=== PATIENT | female | born 1980 | race Caucasian/White ===

== ENCOUNTER 2016-06-26 17:24 | Emergency (ER) | payer OTHER ==
[~2016-06-26] VITALS: Wt 69.0 kg
[~2016-06-26 17:24] MED LIST: CEPH500C PO; DOCU-144 PO; FER325 PO; OXYC-279 PO
--- NOTE | 2016-06-26 19:19 | ERD ---
ER Documentation Chief Complaint Date/Time DATE: 06/26/16 TIME: 19:18 Chief Complaint 8 WKS PREG SPOTTING. MILD ABD CRAMPING. NO DYSURIA. ONSET 2 DAYS HPI 36-year-old female who is with history of 3 miscarriages 8 weeks comes in with vaginal spotting and cramping occurred last night. She was seen at the clinic last today and they referred her to the ER. She has minimal abdominal cramping, no fever, chills or dizziness. Her last menstrual period she believes it was on April 26, 2016 ROS All systems reviewed and are negative except as per history of present illness. Medications Home Meds Active Scripts Nitrofurantoin Monohyd Macrocr* (Macrobid*) 100 Mg Capsr, 100 MG PO BID for 7 Days, CAP Prov:OZZY PEREZ PA-C 06/26/16 Ferrous Sulfate* (Ferrous Sulfate*) 325 Mg Tabec, 325 MG PO BID for 30 Days, TAB Prov:SOLIZ,SEBASTIEN V. TOPPER PRESS OPERATOR AUTOMATIC 03/10/16 Cephalexin* (Cephalexin*) 500 Mg Capsule, 500 MG PO QID, #28 CAP Prov:SOLIZ,SEBASTIEN V. TOPPER PRESS OPERATOR AUTOMATIC 03/10/16 Docusate Sodium* (Colace*) 100 Mg Capsule, 100 MG PO TID for 7 Days, #60 CAP Prov:SOLIZ,SEBASTIEN V. TOPPER PRESS OPERATOR AUTOMATIC 03/10/16 Oxycodone HCl/Acetaminophen (Percocet 5-325 mg Tablet) 1 Each Tablet, 1 EACH PO Q4, #25 TAB Prov:SOLIZ,SEBASTIEN V. TOPPER PRESS OPERATOR AUTOMATIC 03/10/16 Allergies Allergies: Coded Allergies: No Known Allergy (Unverified , 03/05/16) PMhx/Soc History of Surgery: No Anesthesia Reaction: No Hx Neurological Disorder: No Hx Respiratory Disorders: No Hx Cardiac Disorders: No Hx Psychiatric Problems: No Hx Miscellaneous Medical Probl: Yes (cholelithiasis) Hx Alcohol Use: No Hx Substance Use: No Hx Tobacco Use: No Smoking Status: Never smoker Physical Exam Vitals Vital Signs Date Time Temp Pulse Resp B/P Pulse Ox O2 Delivery O2 Flow Rate FiO2 06/26/16 17:36 98.6 75 21 120/64 99 Physical Exam General: Well-developed, well-nourished. The patient appears in no acute distress. HEENT: Head is normocephalic, atraumatic. No scleral icterus. . Neck: Supple. Nontender. Lungs: Clear to auscultation. Normal air movement. Heart: Regular rate and rhythm. S1 and S2 are normal. No murmurs, gallops, or rubs. Abdomen: Soft, nontender, nondistended. Bowel sounds are normoactive. Extremities: No clubbing or cyanosis. Normal pulses. Moving extremities x 4. No weakness. Neurologic: Alert and oriented 3. No focal deficits. Skin: Normal turgor. No rash or lesions. Result Diagram: 06/26/161953 Results 24 hrs Laboratory Tests Test 06/26/16 19:45 06/26/16 19:54 Urine Bacteria MANY Urine Bilirubin NEGATIVE Urine Clarity CLEAR Urine Color LT. YELLOW Urine Glucose NEGATIVE% Urine Hemoglobin 3+ Urine Ketones NEGATIVE Urine Leukocyte Esterase NEGATIVE Urine Microscopic RBC 2-5/HPF Urine Microscopic WBC 5-10/HPF Urine Nitrite NEGATIVE Urine Specific [place] 1.020 Urine Squamous Epithelial Cells FEW Urine Total Protein NEGATIVE Urine Urobilinogen 0.2 E.U./dL Urine pH 7.0 Basophils # 0.010^3/ul Basophils % 0.4% Beta HCG, Quantitative 34065.0mIU/ml Eosinophils # 0.210^3/ul Eosinophils % 2.5% Hematocrit 33.5% Hemoglobin 11.0g/dl Lymphocytes # 3.510^3/ul Lymphocytes % 41.1% Mean Corpuscular Hemoglobin 26.6pg Mean Corpuscular Hemoglobin Concent 32.8g/dl Mean Corpuscular Volume 81.1fl Mean Platelet Volume 11.0fl Monocytes # 0.710^3/ul Monocytes % 8.1% Neutrophils # 0.010^3/ul Neutrophils % 47.7% Nucleated Red Blood Cells # 0.010^3/ul Nucleated Red Blood Cells % 0.0/100WBC Platelet Count 59802^3/UL Red Blood Count 4.1310^6/ul Red Cell Distribution Width 14.8% White Blood Count 8.410^3/ul PROCEDURE: OBSTETRICAL ULTRASOUND WITH ENDOVAGINAL IMAGES CLINICAL INDICATION: Vaginal Bleed () TECHNIQUE: Multiple sonographic images of the pelvis were obtained utilizing a transabdominal and endovaginal technique. The images were reviewed on a PACS workstation. COMPARISON: Obstetrical ultrasound from 03/08/2016 LMP: 04/26/2016 FINDINGS: There is a single live intrauterine with heart rate of 117 beats per minute, mean sac diameter of 1.04 cm, yolk sac, and crown-rump length of 0.37 cm which is consistent with a gestational age of 5 weeks, 6 days . The estimated date of delivery by ultrasound is 02/20/2017 . The estimated gestational age by LMP is 8 weeks, 5 days . The estimated date of delivery by LMP is 01/31/2017 . There is a hypoechoic lesion adjacent to the gestational sac measuring 1.7 x 0.5 cm seen with a subchorionic hemorrhage. The right ovary is not visualized. The left ovary measures 3.0 x 1.3 x 2.6 cm. There is normal vascular flow in the left ovary There is a 1.8 cm complex cystic lesion with uniform low level internal echoes and prominent peripheral vascular flow in the left ovary which is likely a hemorrhagic or corpus luteal cyst. No significant pelvic free fluid is identified. IMPRESSION: Single live intrauterine consistent with a gestational age of 5 weeks , 6 days . The estimated date of delivery is 02/20/2017 . Dating by ultrasound is within 3 weeks of dating by LMP. Small subchorionic hemorrhage. 1.8 cm complex cystic lesion in the left ovary is likely a hemorrhagic or corpus luteal cyst . Nonvisualization of the right ovary. RPTAT: EE Physician Geno Date Time Electronically viewed and signed by Physician Geno on 06/26/2016 20:10 Procedures/MDM 36 year old female comes in with vaginal bleeding, single live IUP seen on ultrasound. No evidence of ectopic , patient is hemodynamically stable , she is follow-up with her OB in the next 3 days. Departure Diagnosis: Primary Impression: Vaginal bleeding in patient at less than 20 weeks gestation Condition: OZZY Simon PA-C Jun 26, 2016 19:19
--- NOTE | 2016-06-26 20:10 | RADRPT ---
PROCEDURE: OBSTETRICAL ULTRASOUND WITH ENDOVAGINAL IMAGES CLINICAL INDICATION: Vaginal Bleed () TECHNIQUE: Multiple sonographic images of the pelvis were obtained utilizing a transabdominal and endovaginal technique. The images were reviewed on a PACS workstation. COMPARISON: Obstetrical ultrasound from 03/08/2016 LMP: 04/26/2016 FINDINGS: There is a single live intrauterine with heart rate of 117 beats per minute, mean sa c diameter of 1.04 cm, yolk sac, and crown-rump length of 0.37 cm which is consistent with a gestati onal age of 5 weeks, 6 days . The estimated date of delivery by ultrasound is 02/20/2017 . The estimated gestational age by LMP is 8 weeks, 5 days . The estimated date of delivery by LMP is 01/31/2017 . There is a hypoechoic lesion adjacent to the gestational sac measuring 1.7 x 0.5 cm seen with a subc horionic hemorrhage. The right ovary is not visualized. The left ovary measures 3.0 x 1.3 x 2.6 cm. There is normal vascu lar flow in the left ovary There is a 1.8 cm complex cystic lesion with uniform low level internal echoes and prominent periphe ral vascular flow in the left ovary which is likely a hemorrhagic or corpus luteal cyst. No significant pelvic free fluid is identified. IMPRESSION: Single live intrauterine consistent with a gestational age of 5 weeks, 6 days . The estimated date of delivery is 02/20/2017 . Dating by ultrasound is within 3 weeks of dating by LMP. Small subchorionic hemorrhage. 1.8 cm complex cystic lesion in the left ovary is likely a hemorrhagic or corpus luteal cyst . Nonvisualization of the right ovary. RPTAT: EE Physician Geno Date Time Electronically viewed and signed by Physician Geno on 06/26/2016 20:10 /
[2016-06-26 20:24] LABS: ADD UMIC YES; URINE BILIRUBIN (Dip) NEGATIVE (NEGATIVE); URINE BLOOD (Dip) 3+ (NEGATIVE); URINE COLOR LT. YELLOW (YELLOW); URINE GLUCOSE (Dip) NEGATIVE (NEGATIVE); URINE KETONES (Dip) NEGATIVE (NEGATIVE); URINE LEUKOCYTE ESTERASE (Dip) NEGATIVE (NEGATIVE); URINE NITRITE (Dip) NEGATIVE (NEGATIVE); URINE TOTAL PROTEIN (Dip) NEGATIVE (NEGATIVE); URINE UROBILINOGEN (Dip) 0.2 E.U./dL (0.1-1.0)
[2016-06-26 21:17] LABS: BACTERIA,URINE MANY; SQUAMOUS EPITHELIAL CELL,UR FEW
[2016-06-26 22:51] LABS: HEMATOCRIT 33.5 % (37.0-47.0); MEAN CORPUSCULAR HEMOGLOBIN 26.6 pg (29.0-33.0); MEAN CORPUSCULAR VOLUME 81.1 fl (82.0-101.0); PLATELET COUNT 321 10^3/UL (140-440); RED BLOOD COUNT 4.13 10^6/ul (4.20-5.40); RED CELL DISTRIBUTION WIDTH 14.8 % (11.5-14.5); WHITE BLOOD COUNT 8.4 10^3/ul (4.8-10.8)
[2016-06-26 22:52] LABS: BASOPHILS % 0.4 % (0.0-2.0); EOSINOPHILS # 0.2 10^3/ul (0.0-0.5); EOSINOPHILS % 2.5 % (0.0-7.0); LYMPHOCYTES # 3.5 10^3/ul (0.8-2.9); LYMPHOCYTES % 41.1 % (15.0-51.0); MONOCYTE # 0.7 10^3/ul (0.3-0.9); MONOCYTES % 8.1 % (0.0-11.0); NEUTROPHILS % 47.7 % (39.0-77.0)
[2016-06-26 22:54] LABS: MEAN CORPUSCULAR HGB CONC 32.8 g/dl (32.0-37.0)
[2016-06-26] MEDS ORDERED: NITR-58 PO (22:55)
[2016-06-26 23:30] VITALS: BP 125/68; PULSE 65; RESP 20; TEMP 98.7
== END 2016-06-26 23:34 | disposition home or self-care (01) ==
LOC: FTE 17:24
DX: O20.9 Hemorrhage in early pregnancy, unspecified (principal); Z3A.01 Less than 8 weeks gestation of pregnancy
CPT/HCPCS: 36415; 76801; 76817; 81001; 84702; 85025; 86900; 86901; Z7502; 81003

== ENCOUNTER 2016-08-06 23:53 | Emergency (ER) | payer OTHER ==
[~2016-08-06] VITALS: Ht 157.5 cm; Wt 80.0 kg
[~2016-08-06 23:53] MED LIST changes: +NITR-58 PO
[2016-08-06 23:57] VITALS: Ht 157.5 cm; Wt 80.0 kg
--- NOTE | 2016-08-07 00:31 | ERD ---
ER Documentation Chief Complaint Date/Time DATE: 08/07/16 TIME: 00:14 Chief Complaint Vaginal bleeding and 13-14 weeks started 45 minutes ago HPI 36-year-old female presents here in emergency department for complaints of vaginal bleeding started today. Patient was in the shower, started to see blood dripping to her legs. Patient is 4 para 1 2. Patient's last menstruation 04/26/2016. Patient denies any abdominal pain or flank pain. Patient denies any fever or chills. Patient denies any nausea or vomiting. ROS All systems reviewed and are negative except as per history of present illness. Medications Home Meds Active Scripts Nitrofurantoin Monohyd Macrocr* (Macrobid*) 100 Mg Capsr, 100 MG PO BID for 7 Days, CAP Prov:OZZY PEREZ PA-C 06/26/16 Ferrous Sulfate* (Ferrous Sulfate*) 325 Mg Tabec, 325 MG PO BID for 30 Days, TAB Prov:SOLIZ,SEBASTIEN V. VALVE MAKER 03/10/16 Cephalexin* (Cephalexin*) 500 Mg Capsule, 500 MG PO QID, #28 CAP Prov:SOLIZ,SEBASTIEN V. VALVE MAKER 03/10/16 Docusate Sodium* (Colace*) 100 Mg Capsule, 100 MG PO TID for 7 Days, #60 CAP Prov:SOLIZ,SEBASTIEN V. VALVE MAKER 03/10/16 Oxycodone HCl/Acetaminophen (Percocet 5-325 mg Tablet) 1 Each Tablet, 1 EACH PO Q4, #25 TAB Prov:SOLIZ,SEBASTIEN V. VALVE MAKER 03/10/16 Allergies Allergies: Coded Allergies: No Known Allergy (Unverified , 03/05/16) PMhx/Soc History of Surgery: No Anesthesia Reaction: No Hx Neurological Disorder: No Hx Respiratory Disorders: No Hx Cardiac Disorders: No Hx Psychiatric Problems: No Hx Miscellaneous Medical Probl: Yes (cholelithiasis) Hx Alcohol Use: No Hx Substance Use: No Hx Tobacco Use: No FmHx Family History: No coronary disease, No diabetes, No other Physical Exam Vitals Vital Signs Date Time Temp Pulse Resp B/P Pulse Ox O2 Delivery O2 Flow Rate FiO2 08/06/16 23:57 98.3 93 18 115/59 96 Physical Exam GENERAL: The patient is well developed and appropriate for usual state of health, in no apparent distress. CHEST: Clear to auscultation bilaterally. There are no rales, wheezes or rhonchi. HEART: Regular rate and rhythm. No murmurs, clicks, rubs or gallops. No S3 or S4. ABDOMEN: Soft, nontender and nondistended. Good bowel sounds. No rebound or guarding. No gross peritonitis. No gross organomegaly or masses. No Hill sign or McBurney point tenderness. BACK: No midline or flank tenderness. EXTREMITIES: Equal pulses bilaterally. There is no peripheral clubbing, cyanosis or edema. No focal swelling or erythema. Full range of motion. Grossly neurovascularly intact. NEURO: Alert and oriented. Cranial nerves 2-12 intact. Motor strength in all 4 extremities with 5/5 strength. Sensation grossly intact. Normal speech and gait. SKIN: There is no apparent rash or petechia. The skin is warm and dry. HEMATOLOGIC AND LYMPHATIC: There is no evidence of excessive bruising or lymphedema. No gross cervical, axillary, or inguinal lymphadenopathy. VAGINAL: Moderate amount of blood in the vaginal vault, cervical os is closed. No adnexal tenderness or cervical motion tenderness noted. Result Diagram: 08/07/16 0210 Results 24 hrs Laboratory Tests Test 08/07/16 02:10 Basophils # 0.010^3/ul Basophils % 0.3% Beta HCG, Quantitative 28244.0mIU/ml Eosinophils # 0.310^3/ul Eosinophils % 3.3% Hematocrit 34.8% Hemoglobin 11.5g/dl Lymphocytes # 3.110^3/ul Lymphocytes % 33.6% Mean Corpuscular Hemoglobin 28.1pg Mean Corpuscular Hemoglobin Concent 33.0g/dl Mean Corpuscular Volume 85.1fl Mean Platelet Volume 10.4fl Monocytes # 0.610^3/ul Monocytes % 6.3% Neutrophils # 5.210^3/ul Neutrophils % 56.3% Nucleated Red Blood Cells # 0.010^3/ul Nucleated Red Blood Cells % 0.0/100WBC Platelet Count 42210^3/UL Red Blood Count 4.0910^6/ul Red Cell Distribution Width 15.9% Urine Bilirubin NEGATIVE Urine Clarity CLEAR Urine Color LT. YELLOW Urine Glucose NEGATIVE% Urine Hemoglobin 3+ Urine Ketones NEGATIVE Urine Leukocyte Esterase NEGATIVE Urine Microscopic RBC 10-25/HPF Urine Microscopic WBC 0-2/HPF Urine Nitrite NEGATIVE Urine Specific [place] <=1.005 Urine Squamous Epithelial Cells FEW Urine Total Protein NEGATIVE Urine Urobilinogen 0.2 E.U./dL Urine pH 6.0 White Blood Count 9.210^3/ul PROCEDURE: Obstetrical ultrasound. CLINICAL INDICATION: Pelvic pain. TECHNIQUE: Multiple sonographic images of the pelvis were obtained with transabdominal technique. Images were obtained with peres scale and color Doppler. COMPARISON: 06/26/2016. FINDINGS: There is a uterine fibroid measuring 7.9 x 4.3 x 6.3 cm. There is an intrauterine gestational sac with a pole identified. heart tones of 179 beats per minute are identified. The crown-rump length averages 5.03 cm, compatible with 11 weeks and 5 days. The mean sac diameter averages 4.59 cm , compatible with 10 weeks and 3 days. A yolk sac is not visualized. No subchorionic collection is identified. There is no pelvic free fluid. Bilateral ovaries are not visualized. There is no suspicious adnexal mass identified. IMPRESSION: Single live intrauterine with an estimated gestational age of 11 weeks and 1 day, with an ultrasound LEELEE of 02/25/2017. Uterine fibroid. Bilateral ovaries not visualized. .Jamaal Guallpa MD, Date Time Electronically viewed and signed by .Jamaal Guallpa MD, MD on 08/07/2016 01:13 .T/ CC: ORESTES COPELAND VALVE MAKER Procedures/MDM Medical Decision Making: Patients vaginal bleeding is most likely consistent of possible threatened . Patient does not show any evidence of hypovolemic shock. Patients hemoglobin and hematocrit is stable. There is low suspicion for ectopic . MANUELITO results show viable 11 week with uterine fibroid BetaHCG Quantitative is appropriate for . The patient is Rh+, does not need RhoGAM this time. There is no signs of symptoms of dehydration. There is low suspicion for sepsis. Patient appears well and is hemodynamically stable. Disposition: Home. Condition: Stable Instructions: Patient is advised to do bed rest, avoid heavy lifting, and avoid having sex until cleared by OB doctor. Patient is advised to follow up with OB doctor or here at the ER in 48 hours for reevaluation of symptoms, repeat beta HCG quantitative and ultrasound. Patient is advised that is symptoms are worst, severe bleeding, dizziness, severe abdominal pain, fever, worst signs and symptoms to return to the emergency department immediately. Departure Diagnosis: Primary Impression: Vaginal bleeding Additional Impressions: Intrauterine Uterine fibroid Uterine leiomyoma location: unspecified location Qualified Code: D25.9 - Uterine leiomyoma, unspecified location Condition: Stable Patient Instructions: Possible Miscarriage (Threatened ), Uterine Fibroids Additional Instructions: Patient is advised to do bed rest, avoid heavy lifting, and avoid having sex until cleared by OB doctor. Patient is advised to follow up with OB doctor or here at the ER in 48 hours for reevaluation of symptoms, repeat beta HCG quantitative and ultrasound. Patient is advised that is symptoms are worst, severe bleeding, dizziness, severe abdominal pain, fever, worst signs and symptoms to return to the emergency department immediately. ORESTES COPELAND NP Aug 07, 2016 00:31
--- NOTE | 2016-08-07 01:13 | RADRPT ---
PROCEDURE: Obstetrical ultrasound. CLINICAL INDICATION: Pelvic pain. TECHNIQUE: Multiple sonographic images of the pelvis were obtained with transabdominal technique. Images were obtained with peres scale and color Doppler. COMPARISON: 06/26/2016. FINDINGS: There is a uterine fibroid measuring 7.9 x 4.3 x 6.3 cm. There is an intrauterine gestational sac wi th a pole identified. heart tones of 179 beats per minute are identified. The [place] n-rump length averages 5.03 cm, compatible with 11 weeks and 5 days. The mean sac diameter averages 4.59 cm, compatible with 10 weeks and 3 days. A yolk sac is not visualized. No subchorionic collecti on is identified. There is no pelvic free fluid. Bilateral ovaries are not visualized. There is no suspicious adnexal mass identified. IMPRESSION: Single live intrauterine with an estimated gestational age of 11 weeks and 1 day, with an ultrasound LEELEE of 02/25/2017. Uterine fibroid. Bilateral ovaries not visualized. .Jamaal Guallpa MD, MD Date Time Electronically viewed and signed by .Jamaal Guallpa MD, MD on 08/07/2016 01:13 .T/
[2016-08-07 02:29] LABS: ADD SCAN DIFF NO
[2016-08-07 02:32] LABS: BASOPHILS % 0.3 % (0.0-2.0); EOSINOPHILS # 0.3 10^3/ul (0.0-0.5); EOSINOPHILS % 3.3 % (0.0-7.0); HEMATOCRIT 34.8 % (37.0-47.0); HEMOGLOBIN 11.5 g/dl (12.0-16.0); LYMPHOCYTES # 3.1 10^3/ul (0.8-2.9); LYMPHOCYTES % 33.6 % (15.0-51.0); MEAN CORPUSCULAR HEMOGLOBIN 28.1 pg (29.0-33.0); MEAN CORPUSCULAR VOLUME 85.1 fl (82.0-101.0); MEAN PLATELET VOLUME 10.4 fl (7.4-10.4); MONOCYTE # 0.6 10^3/ul (0.3-0.9); MONOCYTES % 6.3 % (0.0-11.0); NEUTROPHIL # 5.2 10^3/ul (1.6-7.5); NEUTROPHILS % 56.3 % (39.0-77.0); PLATELET COUNT 308 10^3/UL (140-415); RED BLOOD COUNT 4.09 10^6/ul (4.20-5.40); RED CELL DISTRIBUTION WIDTH 15.9 % (11.5-14.5); WHITE BLOOD COUNT 9.2 10^3/ul (4.8-10.8)
[2016-08-07 02:36] LABS: ADD UMIC YES; URINE BILIRUBIN (Dip) NEGATIVE (NEGATIVE); URINE BLOOD (Dip) 3+ (NEGATIVE); URINE COLOR LT. YELLOW (YELLOW); URINE GLUCOSE (Dip) NEGATIVE (NEGATIVE); URINE KETONES (Dip) NEGATIVE (NEGATIVE); URINE LEUKOCYTE ESTERASE (Dip) NEGATIVE (NEGATIVE); URINE NITRITE (Dip) NEGATIVE (NEGATIVE); URINE TOTAL PROTEIN (Dip) NEGATIVE (NEGATIVE); URINE UROBILINOGEN (Dip) 0.2 E.U./dL (0.1-1.0)
[2016-08-07 03:05] LABS: SQUAMOUS EPITHELIAL CELL,UR FEW
[2016-08-07 04:25] VITALS: BP 106/63; PULSE 89; RESP 20; TEMP 98
== END 2016-08-07 04:26 | disposition home or self-care (01) ==
LOC: FTE 23:53
DX: O20.9 Hemorrhage in early pregnancy, unspecified (principal); O34.11 Maternal care for benign tumor of corpus uteri, first trimester; R10.2 Pelvic and perineal pain; Z3A.11 11 weeks gestation of pregnancy
CPT/HCPCS: 36415; 76805; 81001; 84702; 85025; 86900; 86901; Z7502; 81003

== ENCOUNTER 2017-02-09 16:11 | Outpatient (CLI) | payer OTHER ==
[~2017-02-09] VITALS: Ht 154.9 cm; Wt 89.5 kg
[2017-02-09 16:32] VITALS: BP 113/58; PULSE 74; Ht 154.9 cm; Wt 89.5 kg
[2017-02-09 17:36] LABS: BASOPHILS % 0.2 % (0.0-2.0); EOSINOPHILS # 0.1 10^3/ul (0.0-0.5); EOSINOPHILS % 0.7 % (0.0-7.0); HEMATOCRIT 34.7 % (37.0-47.0); HEMOGLOBIN 11.9 g/dl (12.0-16.0); LYMPHOCYTES # 1.9 10^3/ul (0.8-2.9); LYMPHOCYTES % 23.2 % (15.0-51.0); MEAN CORPUSCULAR HEMOGLOBIN 31.6 pg (29.0-33.0); MEAN CORPUSCULAR HGB CONC 34.3 g/dl (32.0-37.0); MEAN CORPUSCULAR VOLUME 92.3 fl (82.0-101.0); MONOCYTE # 0.6 10^3/ul (0.3-0.9); MONOCYTES % 7.4 % (0.0-11.0); NEUTROPHILS % 68.3 % (39.0-77.0); PLATELET COUNT 207 10^3/UL (140-415); RED BLOOD COUNT 3.76 10^6/ul (4.20-5.40); RED CELL DISTRIBUTION WIDTH 12.5 % (11.5-14.5); WHITE BLOOD COUNT 8.3 10^3/ul (4.8-10.8)
[2017-02-09 17:42] LABS: ADD UMIC YES; UR ASCORBIC ACID NEGATIVE (NEGATIVE); UR BILIRUBIN (Dip) NEGATIVE (NEGATIVE); UR BLOOD (Dip) NEGATIVE (NEGATIVE); UR CLARITY SLIGHTLY CLOUDY (CLEAR); UR COLOR YELLOW (YELLOW); UR GLUCOSE (Dip) NEGATIVE (NEGATIVE); UR KETONES (Dip) NEGATIVE (NEGATIVE); UR LEUKOCYTE ESTERASE (Dip) NEGATIVE Leu/ul (NEGATIVE); UR NITRITE (Dip) POSITIVE (NEGATIVE); UR RBC 0 /HPF (0-5); UR SPECIFIC GRAVITY (Dip) 1.012 (1.003-1.030); UR SQUAMOUS EPITHELIAL CELL FEW /HPF (FEW); UR TOTAL PROTEIN (Dip) NEGATIVE (NEGATIVE); UR UROBILINOGEN (Dip) NEGATIVE (NEGATIVE)
[2017-02-09 17:58] LABS: ALBUMIN 3.2 g/dl (3.3-4.9); ALBUMIN/GLOBULIN RATIO 0.96; BILIRUBIN,INDIRECT 0.1 mg/dl (0-1.1); BILIRUBIN,TOTAL 0.1 mg/dl (0.2-1.3); CALCIUM 9.3 mg/dl (8.4-10.2); CREATININE 0.7 mg/dl (0.44-1.00); POTASSIUM 4.1 mmol/L (3.5-5.1); TOTAL PROTEIN 6.5 g/dl (6.1-8.1)
--- NOTE | 2017-02-09 18:07 | RADRPT ---
PROCEDURE: US OB biophysical profile. CLINICAL INDICATION: decreased movements, nausea TECHNIQUE: Multiple sonographic images of the pelvis were obtained. The images were reviewed on a PACS workstation. COMPARISON: No prior studies are available for comparison. FINDINGS: There is a single viable intrauterine gestation. Cardiac activity is present with 132 beats per min coral. There is a vertex presentation. The placenta is anterior. There is no evidence of placental abruption. There is a normal amount of amniotic fluid with an MARCO ANTONIO = 17 cm. Biophysical profile: movement 2/2 tone 2/2. breathing 2/2 MAR[place] 2/2 Total 01/07 RPTAT: AA . IMPRESSION: Normal biophysical profile. . .Pawel Lee MD, MD Date Time Electronically viewed and signed by .Pawel Lee MD, MD on 02/09/2017 18:07 .S/
--- NOTE | 2017-02-09 19:16 | TRIAGE ---
OB Triage Datetime Report Generated by CPN: 02/09/2017 19:15 Datetime: 02/09/2017 18:42 Stage of : OB Triage Datetime: 02/09/2017 18:36 Labor Evaluation Frequency: 7-10 Monitor Mode: External Duration (sec)2399: 50-70 Quality: Mild Pattern: Normal: <= 5 Contractions in 10 Minutes Resting Tone [place]: Relaxed Contraction Comments: denies feeling Heart Rate FHR Baseline Rate: 135 Monitor Mode: External US Variability: Moderate 6-25 bpm Accelerations: 10X10 Decelerations: None Category: Category I Pain Assessment Pain Scale: 4 Pain Presence: Constant Pain Type: Ache Pain Location: Head Pain Goal: 3 Pain Relief Measures: Comfort Measures Datetime: 02/09/2017 17:33 Labor Evaluation Frequency: X1 Monitor Mode: External Duration (sec)2399: 70 Quality: Mild Resting Tone [place]: Relaxed Heart Rate FHR Baseline Rate: 135 Monitor Mode: External US Variability: Moderate 6-25 bpm Accelerations: 10X10 Decelerations: None Category: Category I Pain Assessment Pain Scale: 6 Pain Presence: Constant Pain Type: Ache Pain Location: Head Pain Goal: 3 Pain Relief Measures: Comfort Measures Datetime: 02/09/2017 17:09 Stage of : OB Triage Datetime: 02/09/2017 16:28 Stage of : OB Triage Assessment Type: Triage Maternal Assessment Level of Consciousness: Fully Conscious DTR's/Clonus: DTRs 2+; No Clonus Headache: Denies Blurred Vision: No Respiratory Effort: Unlabored; Regular Rhythm; Equal Expansion Breath Sounds, Left: Clear and Equal Breath Sounds, Right: Clear and Equal Nausea/Vomiting: Denies RUQ Epigastric Pain: Denies Facial Edema: None Temperature Route: Axillary Fall Risk Assessment History of Falling: (0) No Secondary Diagnosis: (0) No Ambulatory Aid: (0) Bedrest/Nurse Assist IV Therapy: (0) No Gait: (0) Normal/Bedrest/Immobile Mental Status: (0) Oriented to Own Ability Fall Score: 0 Fall Risk Score Definition: No Risk: No action required Labor Evaluation Frequency: X1 Monitor Mode: External Duration (sec)2399: 50 Quality: Mild Pattern: Normal: <= 5 Contractions in 10 Minutes Resting Tone [place]: Relaxed Heart Rate FHR Baseline Rate: 135 Monitor Mode: External US Variability: Moderate 6-25 bpm Accelerations: 10X10 Decelerations: None Category: Category I Pain Assessment Pain Scale: 8 Pain Presence: Intermittent Pain Type: Cramping; Pressure; Ache Pain Location: Head Pain Goal: 3 Pain Relief Measures: Comfort Measures Datetime: 02/09/2017 16:26 Time of Arrival: 02/09/2017 16:10 EGA: 39.0 Arrived By: Ambulatory Arrived From: Home Chief Complaint: C/O N/V AND ABDOMINAL PAIN SINCE YESTERDAY. DENIES BLEEDING OR LEAKING OF FLUID. WAS GIVEN NEW MED FOR DIABETES 2 DAYS AGO, DOES NOT KNOW NAME OF MEDICINE Movement: Decreased Contractions: Denies/Absent Rupture of Membranes: Denies Vaginal Bleeding: None Vaginal Discharge: Denies Recent Sexual Intercouse: Denies Abdominal Trauma: Not Applicable Patient Complaints: Headache; Nausea; Vomiting Time Provider Notified: 02/09/2017 17:09 Provider Notified: ABHI Initial Plan: MONITOR, CBC, CMP, AMYLASE, LIPASE, U/A, BPP
== END 2017-02-09 19:00 | disposition home or self-care (01) ==
LOC: OBT 16:11 → L-D 16:13 → OBT 19:00
PROVIDERS: ATTEND Obstetrics & Gynecology
DX: O26.893 Other specified pregnancy related conditions, third trimester (principal); R10.9 Unspecified abdominal pain; Z3A.39 39 weeks gestation of pregnancy
CPT/HCPCS: 76818; 80053; 81001; 82150; 82962; 83690; 85025

== ENCOUNTER 2017-02-11 20:09 | Inpatient (IN) | payer OTHER ==
[~2017-02-11] VITALS: Ht 154.9 cm; Wt 89.9 kg
[~2017-02-11 20:09] MED LIST changes: -CEPH500C PO; -DOCU-144 PO; -NITR-58 PO; -OXYC-279 PO
[2017-02-11 22:09] VITALS: BP 113/64; PULSE 66; RESP 18
[2017-02-11] MEDS ORDERED: METF500T3 PO (22:11)
[2017-02-11] MEDS ORDERED: PRENAT PO (22:11)
[2017-02-11] MEDS: LACTATED RINGER'S 1,000 ML IV SCH (22:30)
[2017-02-11] MEDS ORDERED: LIDOCAINE 1% (MPF) 30 ML INJ INJ PRN (22:30)
[2017-02-11] MEDS ORDERED: METHYLERGONOVINE 0.2 MG INJ IM PRN (22:30)
[2017-02-11] MEDS ORDERED: OXYTOCIN 30 UNITS/LR 500 ML IV PRN (22:30)
[2017-02-11] MEDS ORDERED: OXYTOCIN 30 UNITS/LR 500 ML IV SCH ×2 (22:30)
[2017-02-11] MEDS ORDERED: IBUPROFEN 600 MG TAB PO PRN (22:30)
[2017-02-11] MEDS ORDERED: CARBOPROST 250 MCG INJ IM PRN (22:30)
[2017-02-11] MEDS ORDERED: AMPICILLIN 2 GM/NS (PMX) 100 ML IV ONE (22:30)
[2017-02-11] MEDS ORDERED: MISOPROSTOL 200 MCG TAB PR PRN (22:30)
[2017-02-11] MEDS ORDERED: MINERAL OIL LIGHT 10 ML VIAL TOP ONE (22:30)
--- NOTE | 2017-02-11 22:44 | RADRPT ---
PROCEDURE: US biophysical profile. CLINICAL INDICATION: DFM. well-being. TECHNIQUE: Multiple sonographic images of the uterus were obtained. The images were revi ewed on a PACS workstation. COMPARISON: 02/09/2017. FINDINGS: There is a single live intrauterine gestation. heart rate is 144 beats per minute. The position is cephalic. The placenta is anterior, grade II. The MARCO ANTONIO is 16.3 cm. Breathing Movement: 2 Gross Body Movement: 2 Tone: 2 Qualitative Amniotic Fluid Volume: 2 TOTAL: 8 IMPRESSION: 1. Single viable intrauterine gestation. 2. Biophysical profile = 01/07. 3. MARCO ANTONIO = 16.3 cm. RPTAT: HFN .Sergei Phelps MD, MD Date Time Electronically viewed and signed by .Sergei Phelps MD, MD on 02/11/2017 22:43 .N/
--- NOTE | 2017-02-11 22:49 | TRIAGE ---
OB Triage Datetime Report Generated by CPN: 02/11/2017 22:49 Datetime: 02/11/2017 22:30 Stage of : OB Triage Monitor Mode: External Quality: Mild Pattern: Normal: <= 5 Contractions in 10 Minutes Resting Tone [place]: Relaxed FHR Baseline Rate: 140 Monitor Mode: External US FHR Baseline Changes: No Baseline Change Variability: Moderate 6-25 bpm Accelerations: 15X15 Decelerations: None Category: Category I Datetime: 02/11/2017 21:15 Stage of : OB Triage Frequency: 9-12 Monitor Mode: External Duration (sec)2399: 60-100 Quality: Mild Pattern: Normal: <= 5 Contractions in 10 Minutes Resting Tone [place]: Relaxed FHR Baseline Rate: 135 Monitor Mode: External US FHR Baseline Changes: No Baseline Change Variability: Moderate 6-25 bpm Accelerations: 15X15 Decelerations: None Category: Category I Datetime: 02/11/2017 20:56 Membrane Status: Intact Datetime: 02/11/2017 20:44 Stage of : OB Triage Level of Consciousness: Fully Conscious Headache: Denies Blurred Vision: No Respiratory Effort: Unlabored Nausea/Vomiting: Denies RUQ Epigastric Pain: Denies Facial Edema: None Frequency: placed Monitor Mode: External Resting Tone [place]: Relaxed Monitor Mode: External US Comments: FHT 135 Pain Scale: 0 Pain Presence: None/Denies Pain Type: N/A Datetime: 02/11/2017 20:30 Time of Arrival: 02/11/2017 19:59 EGA: 39.2 Arrived By: Ambulatory Arrived From: Home Chief Complaint: w/ A2DM sent from office with oders for NST/BPP for c/o DFM Movement: Decreased Contractions: Denies/Absent Rupture of Membranes: Denies Vaginal Bleeding: None Vaginal Discharge: Denies Recent Sexual Intercouse: Denies Abdominal Trauma: Not Applicable Patient Complaints: Other Time Provider Notified: 02/11/2017 21:15 Provider Notified: Dr Garcia Initial Plan: NST/BPP
[2017-02-11 23:12] LABS: BASOPHILS % 0.2 % (0.0-2.0); EOSINOPHILS # 0.1 10^3/ul (0.0-0.5); EOSINOPHILS % 1.1 % (0.0-7.0); LYMPHOCYTES # 2.4 10^3/ul (0.8-2.9); LYMPHOCYTES % 26.7 % (15.0-51.0); MEAN CORPUSCULAR HEMOGLOBIN 31.9 pg (29.0-33.0); MEAN CORPUSCULAR HGB CONC 34.3 g/dl (32.0-37.0); MEAN CORPUSCULAR VOLUME 93.1 fl (82.0-101.0); MEAN PLATELET VOLUME 12.3 fl (7.4-10.4); MONOCYTE # 0.6 10^3/ul (0.3-0.9); MONOCYTES % 6.9 % (0.0-11.0); NEUTROPHILS % 64.8 % (39.0-77.0); PLATELET COUNT 200 10^3/UL (140-415); RED BLOOD COUNT 3.76 10^6/ul (4.20-5.40); RED CELL DISTRIBUTION WIDTH 12.8 % (11.5-14.5); WHITE BLOOD COUNT 8.8 10^3/ul (4.8-10.8)
[2017-02-11 23:22] LABS: INR 0.91; PROTIME 12.2 Sec (12.2-14.2)
[2017-02-11 23:23] LABS: PARTIAL THROMBOPLASTIN TIME 28.6 Sec (25.0-35.0)
[2017-02-11 23:25] LABS: ALANINE AMINOTRANSFERASE 22 IU/L (13-69); ALBUMIN 3.4 g/dl (3.3-4.9); ALBUMIN/GLOBULIN RATIO 0.94; ALKALINE PHOSPHATASE 162 IU/L (42-121); ANION GAP 11 (8-16); ASPARTATE AMINO TRANSFERASE 16 IU/L (15-46); BILIRUBIN,INDIRECT 0.1 mg/dl (0-1.1); BILIRUBIN,TOTAL 0.1 mg/dl (0.2-1.3); BLOOD UREA NITROGEN 14 mg/dl (7-20); CALCIUM 9.4 mg/dl (8.4-10.2); CARBON DIOXIDE 21 mmol/L (21-31); CHLORIDE 109 mmol/L (97-110); CREATININE 0.66 mg/dl (0.44-1.00); GLUCOSE 83 mg/dl (70-220); POTASSIUM 4.2 mmol/L (3.5-5.1); SODIUM 137 mmol/L (135-144)
[2017-02-11] MEDS ORDERED: LACTATED RINGER'S 1,000 ML IV PRN (23:30)
[2017-02-12] MEDS ORDERED: MISOPROSTOL 25 MCG CAPSULE PO PRN
--- NOTE | 2017-02-12 00:06 | HP ---
Date/Time of Note Date/Time of Note DATE: 02/12/17 TIME: 00:04 OB - History Hx of Present Chief Complaint: Decreased movement Estimated Due Date: Feb 16, 2017 : 4 Para: 1 Spontaneous : 2 Therapeutic : 0 Care: Good Care Ultrasounds: Normal mid trimester US Obstetrical Complications: Gestational Diabetes Medical Complications: None Past Family/Social History * Past Medical, Surgical, Family and Obstetric Histories reviewed from chart. GBS Status: Positive OB Admission Exam Vital Signs Vital Signs Vital Signs Date Time Temp Pulse Resp B/P Pulse Ox O2 Delivery O2 Flow Rate FiO2 02/11/17 22:09 98.8 66 18 113/64 Room Air Physical Exam HEENT: WNL Heart: Rhythm Normal Lungs: Clear, Equal Abdomen: WNL Extremities: Normal Reflexes: Normal Cervical Dilatation: 1cm Effacement: 50% Station: -1 Membranes: Intact Heart Rate: 130's Accelerations: Accelerations Present Decelerations: No Decelerations Varibility: Moderate Last 72 hours Lab Results CBC & BMP 02/11/17 22:30 Liver Function Test 02/11/17 22:30 Alanine Aminotransferase (ALT/SGPT) 22 Albumin 3.4 Alkaline Phosphatase 162 H Aspartate Amino Transf (AST/SGOT) 16 Direct Bilirubin 0.00 Total Protein 7.0 OB Assessment/Plan Reason for admission: induction of labor Plan: Induction Induction Method: per Misoprostol Protocol ALVARO MOE MD Feb 12, 2017 00:06
[2017-02-12] MEDS: DEXTROSE 5%-LR 1,000 ML IV SCH ×4 (00:13→23:54)
[2017-02-12] MEDS: AMPICILLIN 1 GM/NS (PMX) 50 ML IV SCH ×6 (02:51→22:34)
[2017-02-12] MEDS: BUTORPHANOL 2 MG INJ IV PRN ×2 (07:48→14:40)
[2017-02-12] MEDS: OXYTOCIN 30 UNITS/LR 500 ML IV SCH (10:04)
[2017-02-12] MEDS: LACTATED RINGER'S 1,000 ML IV SCH ×2 (14:11→14:48)
[2017-02-13] MEDS: AMPICILLIN 1 GM/NS (PMX) 50 ML IV SCH ×6 (02:40→22:37)
[2017-02-13] MEDS: LACTATED RINGER'S 1,000 ML IV SCH ×3 (03:26→14:11)
[2017-02-13] MEDS ORDERED: MISOPROSTOL 25 MCG CAPSULE PO ONE (07:00)
[2017-02-13] MEDS: DEXTROSE 5%-LR 1,000 ML IV SCH ×3 (07:54→18:40)
[2017-02-13] MEDS: MISOPROSTOL 25 MCG CAPSULE PO SCH ×2 (16:17→20:07)
[2017-02-14] MEDS: MISOPROSTOL 25 MCG CAPSULE PO SCH ×3 (00:25→08:30)
[2017-02-14] MEDS: BUTORPHANOL 2 MG INJ IV PRN ×2 (00:36→13:30)
[2017-02-14] MEDS: AMPICILLIN 1 GM/NS (PMX) 50 ML IV SCH ×5 (02:45→18:41)
[2017-02-14] MEDS: DEXTROSE 5%-LR 1,000 ML IV SCH ×3 (06:33→20:31)
[2017-02-14] MEDS: LACTATED RINGER'S 1,000 ML IV SCH (13:45)
[2017-02-14] MEDS ORDERED: OXYTOCIN 30 UNITS/LR 500 ML IV SCH (15:00)
[2017-02-14] MEDS: OXYTOCIN 30 UNITS/LR 500 ML IV SCH (15:26)
[2017-02-14] MEDS ORDERED: CEFAZOLIN 2 GM/50 ML (PMX) 50 ML IVPB ONE (17:30)
--- NOTE | 2017-02-14 23:43 | QN ---
Documentation Comment Patient has received maximum dose of Cytotec and cervix is closed with presenting part not engaged. Patient is for delivery by Primary . ALVARO MOE MD Feb 14, 2017 23:43
[2017-02-15] VITALS (9 sets, daily range): BP systolic 104–134; BP diastolic 62–73; PULSE 53–81; RESP 16–20
[2017-02-15] MEDS ORDERED: OXYTOCIN 30 UNITS/LR 500 ML BAG IV ONE
[2017-02-15] MEDS ORDERED: CEFAZOLIN 1 GM INJ ONE
[2017-02-15] MEDS ORDERED: ONDANSETRON 4 MG INJ ONE (00:16)
[2017-02-15] MEDS ORDERED: OXYTOCIN 10 UNIT INJ ONE (00:16)
[2017-02-15] MEDS ORDERED: morphine SULFATE/PF (10 MG/10 ML) INJ ONE (00:16)
[2017-02-15] MEDS ORDERED: PHENYLephrine (100 MCG/ML) 5ML SYG ONE (00:16)
--- NOTE | 2017-02-15 01:13 | SIPON ---
Date/Time of Note Date/Time of Note DATE: 02/15/17 TIME: 01:11 Operative Report Preoperative Diagnosis Term with GDM and failed induction Postoperative Diagnosis Same Operation/Procedure Performed primary Surgeon Alvaro Moe MD assistant golf coach: SIGIFREDO GUTIERREZ MD Anesthesia Type: spinal Estimated Blood Loss: other (600 ml) Transfusion Required: no Specimens placenta Grafts/Implants: none Complications: no ALVARO MOE MD Feb 15, 2017 01:13
[2017-02-15] MEDS ORDERED: DIPHENHYDRAMINE 50 MG INJ IV PRN (01:30)
[2017-02-15] MEDS ORDERED: ONDANSETRON 4 MG INJ IV PRN (01:30)
[2017-02-15] MEDS ORDERED: NALOXONE (0.4 MG/ML) INJ IV PRN (01:30)
[2017-02-15] MEDS ORDERED: morphine 2 MG INJ IV PRN (01:30)
[2017-02-15] MEDS: LACTATED RINGER'S 1,000 ML IV SCH ×3 (03:11→16:32)
[2017-02-15] MEDS: OXYTOCIN 30 UNITS/LR 500 ML IV SCH ×2 (03:11→05:27)
[2017-02-15] MEDS ORDERED: OXYTOCIN 30 UNITS/LR 500 ML IV PRN (03:30)
[2017-02-15] MEDS ORDERED: MISOPROSTOL 200 MCG TAB PR PRN (03:30)
[2017-02-15] MEDS ORDERED: CARBOPROST 250 MCG INJ IM PRN (03:30)
[2017-02-15] MEDS ORDERED: METHYLERGONOVINE 0.2 MG INJ IM PRN (03:30)
--- NOTE | 2017-02-15 04:17 | OPR ---
DATE OF OPERATION: 02/15/2017 PREOPERATIVE DIAGNOSIS: at term with gestational diabetes and failed induction. POSTOPERATIVE DIAGNOSIS: at term with gestational diabetes and failed induction. OPERATION PERFORMED: Primary low-transverse and section. SURGEON: Dr. Garcia. CONCRETE TECHNICIAN: Dr. David. ANESTHESIA: Spinal. ANESTHESIOLOGIST: Dr. Ambrocio. OPERATIVE PROCEDURE: Patient was taken to the operating room and placed on the operating table. After successful spinal anesthesia was given, the patient was placed in supine position. The area was prepared and draped in the usual sterile fashion. Spinal anesthesia was tested and was satisfactory. Using a scalpel, Pfannenstiel incision was made about 2 fingerbreadths above the symphysis pubis. The incision was carried to the fascia. The fascia was incised and extended bilaterally with Mishra scissors. Two Selvin's were used to separate the fascia from the muscle. The muscle was dissected midline down to the peritoneum. The peritoneum was bluntly entered. Using a scalpel, a small transverse incision was made on the lower segment of the uterus. Upon entering the uterine cavity, bandage scissors were inserted to extend the incision bilaterally curved up. Baby was delivered from cephalic presentation. After suctioned clear of amniotic fluid, the baby was on the team in attendance. Apgars were 8 and 9. The placenta was delivered without difficulty. The uterus was closed with #1 Monocryl continuous locked fashion. After ensuring hemostasis, both ovaries and tubes were inspected. All looked normal. The peritoneum was closed with 2-0 Vicryl continuous. The fascia was closed with #1 Vicryl continuous in 2 segments. Subcutaneous tissue was reapproximated with 2-0 plain. The skin was closed with martinez. ESTIMATED BLOOD LOSS: 600 mL. COUNTS: All counts were correct. Dictated By: Wisam Garcia MD /[email or web address] /Document#: [id number]
[2017-02-15] MEDS: LANOLIN 7 GM TUBE TOP PRN (05:28)
[2017-02-15] MEDS: KETOROLAC 30 MG INJ IV PRN ×2 (08:00→20:01)
[2017-02-15] MEDS: SENNA/DOCUSATE NA (8.6MG/50MG) TAB PO SCH ×2 (08:54→21:00)
--- NOTE | 2017-02-15 18:21 | QN ---
Documentation Comment No complaint Afebrile VSS Abdomen soft ND POD #1 Stable Ambulate Advance diet ALVARO MOE MD Feb 15, 2017 18:20
[2017-02-15] MEDS ORDERED: OXYCODONE/ACETAMINOPHEN (5/325) TAB PO PRN (23:55)
[2017-02-16 00:40] VITALS: BP 114/65; PULSE 84; RESP 20
[2017-02-16] MEDS: LACTATED RINGER'S 1,000 ML IV SCH (03:11)
[2017-02-16 04:45] VITALS: BP 123/63; PULSE 76; RESP 19
[2017-02-16] MEDS: IBUPROFEN 800 MG TAB PO SCH ×3 (05:52→21:24)
[2017-02-16 08:00] VITALS: BP 117/65; PULSE 69; RESP 18
[2017-02-16] MEDS: SENNA/DOCUSATE NA (8.6MG/50MG) TAB PO SCH ×2 (08:27→21:25)
[2017-02-16] MEDS: OXYCODONE/ACETAMINOPHEN (5/325) TAB PO PRN ×2 (08:28→20:01)
[2017-02-16 09:06] LABS: BASOPHILS % 0.2 % (0.0-2.0); EOSINOPHILS # 0.1 10^3/ul (0.0-0.5); EOSINOPHILS % 0.8 % (0.0-7.0); HEMATOCRIT 26.3 % (37.0-47.0); HEMOGLOBIN 8.8 g/dl (12.0-16.0); LYMPHOCYTES # 1.4 10^3/ul (0.8-2.9); LYMPHOCYTES % 12.8 % (15.0-51.0); MEAN CORPUSCULAR HEMOGLOBIN 31.4 pg (29.0-33.0); MEAN CORPUSCULAR HGB CONC 33.5 g/dl (32.0-37.0); MEAN CORPUSCULAR VOLUME 93.9 fl (82.0-101.0); MEAN PLATELET VOLUME 12.1 fl (7.4-10.4); MONOCYTE # 0.5 10^3/ul (0.3-0.9); MONOCYTES % 4.9 % (0.0-11.0); NEUTROPHIL # 8.8 10^3/ul (1.6-7.5); NEUTROPHILS % 80.9 % (39.0-77.0); PLATELET COUNT 147 10^3/UL (140-415); RED CELL DISTRIBUTION WIDTH 12.7 % (11.5-14.5); WHITE BLOOD COUNT 10.8 10^3/ul (4.8-10.8)
[2017-02-16 16:00] VITALS: BP 122/62; PULSE 72; RESP 20
--- NOTE | 2017-02-16 18:25 | DS ---
Date/Time of Note Date/Time of Note DATE: 02/16/17 TIME: 18:24 Obstetrical Discharge Record Final Diagnosis Final Diagnosis: Term delivered Section Section: Primary Primary Indication Failed induction Complications Gestational Diabetes Condition on Discharge Physical Assessment Voiding: Yes Bowel Movement: Yes Breast: Soft, non-tender Fundus: Firm Abdomen and Incision: Incision intact Calf Tenderness: No Patient Condition: Stable ALVARO MOE MD Feb 16, 2017 18:25
[2017-02-16 20:26] VITALS: BP 116/62; PULSE 72; RESP 19
[2017-02-17 04:45] VITALS: BP 108/59; PULSE 69; RESP 19
[2017-02-17] MEDS: IBUPROFEN 800 MG TAB PO SCH (06:00)
[2017-02-17] MEDS: LANOLIN 7 GM TUBE TOP PRN (06:00)
[2017-02-17 08:00] VITALS: BP_SYST 109; PULSE 69; RESP 18
[2017-02-17] MEDS: SENNA/DOCUSATE NA (8.6MG/50MG) TAB PO SCH (09:09)
[2017-02-18] MEDS ORDERED: DIPHTH/TET/ACEL PERTUSS (ADULT) 0.5 ML VIAL IM* ONE (09:00)
--- NOTE | 2017-02-18 10:43 | NSTRPT ---
NST Information Datetime Report Generated by CPN: 02/18/2017 10:43 Datetime: 02/10/2017 10:15 NST Information EGA: 39.1 Test Number: 7 Time on Monitor: 02/10/2017 10:37 Time off Monitor: 02/10/2017 10:58 NST Duration (Min): 21 Reason for NST: Diabetes Mellitus; Other Reason for NST Other: A1DM Test and Monitor Explained: Monitor Explained; Test Explained; Verbalized Understanding Pulse: 91 Resp: 16 SBP: 105 DBP: 59 Test Evaluation NST Interventions: None Patient States Movement: Present Contraction Frequency: x1 FHR Baseline : 145 Variability: Moderate 6-25bpm Accelerations: 15X15 Decelerations: None FHR Category: Category I NST Results: Reactive Comments: PT TO U/S, cephalic, carla 17.3cm., fbs 84. 116-Pt home, undelivered with LABOR precautio ns. Follow up NST appointment given. Kick Count instructions reviewed. Pt states understanding . No further questions asked at this time. Electronically Signed By E-Signature: with User ID: [id number] Datetime: 02/06/2017 10:21 NST Information EGA: 38.4 NST Duration (Min): 24 Datetime: 02/04/2017 10:13 NST Information EGA: 38.2 NST Duration (Min): 20 Datetime: 01/30/2017 13:00 NST Information EGA: 37.4 NST Duration (Min): 29 Datetime: 01/28/2017 09:50 NST Information EGA: 37.2 NST Duration (Min): 40 Datetime: 01/23/2017 10:30 NST Information EGA: 36.4 NST Duration (Min): 31 Datetime: 01/20/2017 10:03 NST Information EGA: 36.1 Datetime: 01/20/2017 09:49 NST Duration (Min): 39
== END 2017-02-17 12:40 | disposition home or self-care (01) | DRG 766 ==
LOC: L-D 20:09 → OBT 20:09 → L-D 20:17 → OBT 21:15 → L-D 23:14 → PP1 02-15 04:19
PROVIDERS: ADMIT Obstetrics & Gynecology; ATTEND Obstetrics & Gynecology
PROC: 3E0D7GC Introduction of Other Therapeutic Substance into Mouth and Pharynx, Via Natural or Artificial Opening (ICD-10-PCS; 2017-02-11)
PROC: 10D00Z1 Extraction of Products of Conception, Low, Open Approach (ICD-10-PCS; principal; 2017-02-15 00:30)
DX: O36.8130 Decreased fetal movements, third trimester, not applicable or unspecified (principal); O24.429 Gestational diabetes mellitus in childbirth, unspecified control; Z37.0 Single live birth; Z3A.39 39 weeks gestation of pregnancy
CPT/HCPCS: 36415; 76818; 80053; 82962; 85025; 85610; 85730; 86592; 86900; 86901; 87340; 94760; 99464; G0463; J0290; J0595; J0690; J1885; J2210; J2274; J2370; J2405; J2590; J7120; J7121